=== PATIENT | female | born 1995 | race Caucasian/White ===

== ENCOUNTER 2017-03-11 10:46 | Emergency (ER) | payer OTHER ==
[~2017-03-11] VITALS: Ht 160 cm; Wt 56.0 kg
[2017-03-11 11:00] VITALS: TEMP 36.9; Ht 160 cm; Wt 56.0 kg
[2017-03-11] MEDS ORDERED: SODIUM CHLORIDE 0.9% 1000ML 1,000 ML IV STA (12:04)
[2017-03-11] MEDS ORDERED: ACETAMINOPHEN 500 MG TAB PO STA (12:04)
[2017-03-11 12:27] LABS: URINE APPEARANCE CLEAR (CLEAR); URINE BILIRUBIN NEG (NEG); URINE COLOR YELLOW; URINE EPITHELIAL CELL AUTO >30 /lpf (0-5); URINE NITRITE NEG (NEG); URINE PH 8.5 (4.5-7.5); URINE SPECIFIC GRAVITY 1.022 (1.000-1.030); UROBILINOGEN NEG (NEG); ZZUR CULT IF INDIC CLEAN CATCH NO
[2017-03-11 12:27] LABS: BASO % 0.2 %; BASO ABS # 0.01 K/uL (0-0.2); COMPLETE YES; EOS % 0.3 %; HEMATOCRIT 38.5 % (37-47); IG% 0.2 %; LYMPH % 16.8 %; MEAN CELL VOLUME 85.9 fL (80-100); MEAN CORPUSCULAR HEMOGLOBIN 30.4 pg (25-34); MEAN CORPUSCULAR HGB CONC 35.3 g/dl (32-36); MEAN PLATELET VOLUME 10.2 fL (7.4-10.4); MONO % 10.9 %; NEUT % 71.6 %; PLATELET COUNT 139 K/uL (130-400); RED BLOOD COUNT 4.48 M/uL (4.2-5.4); WHITE BLOOD COUNT 5.97 K/uL (4.8-10.8)
[2017-03-11 12:29] LABS: MANUAL MICROSCOPIC REQUIRED? NO; REVIEW REQ? NO
[2017-03-11 12:45] LABS: BUN/CREATININE RATIO 10.4 (10-20); CREATININE 0.7 mg/dl (0.60-1.20); POTASSIUM 3.6 mmol/L (3.5-5.1)
[2017-03-11 12:52] LABS: PREG INTERNAL NEGATIVE QC NEG CLEAR BACKGROUND; PREG INTERNAL POSITIVE QC POS CONTROL LINE
[2017-03-11 13:51] VITALS: BP 101/71; PULSE 80; O2SAT 100
--- NOTE | 2017-03-11 13:56 | EMERGENCY ROOM VISIT NOTE ---
History Report prepared by Pretty: Serenity Talbot Under the Supervision of: Dr. Deonte Navarrete M.D. 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 She states that she couldn't feel her fingertips. The patient then became dizzy and fell backwards but her coworker caught her so she did not hit her head or get injured from falling. The patient does not remember falling. The patient states that she has never experienced syncope in the past. She started feeling ill yesterday with a headache and sinus congestion. She suspects that she also had a fever because she was cold even though she was under 5 blankets. She is also experiencing a dry cough, chest tightness, and generalized body aches. The patient also experienced a sore throat yesterday morning, but has not had one since then. She has not taken any medication in an attempt to relieve her symptoms. The patient denies nausea, diarrhea, urinary symptoms including increased frequency or burning. The patient thinks that she is well hydrated. The patient did not eat breakfast this morning, but she states that is normal for her. She denies any chance of . The patient denies any recent sick contacts. Source of History: patient Onset: BUSINESS DIRECTOR Position: other (global) Quality: other (near-syncope) Timing: other (sudden) Associated Symptoms: + headache, + sorethroat, + cough (dry), + numbness ( prior to syncope), No nausea, No diarrhea, No urinary symptoms (including increased frequency or burning) Note: dizziness prior to syncope, sinus congestion, generalized body aches, chest tightness Review of Systems See HPI for pertinent positives & negatives. A total of 10 systems reviewed and were otherwise negative. Past Medical & Surgical Medical Problems: (1) History of bronchitis Family History Cancer Diabetes mellitus Heart disease Hypertension Social History Smoking Status: Never Smoker Housing Status: lives with family Occupation Status: employed Current/Historical Medications No Active Prescriptions or Reported Meds Allergies Coded Allergies: No Known Allergies (Unverified , 03/11/17) Physical Exam Vital Signs Date Time Temp Pulse Resp B/P (MAP) Pulse Ox O2 Delivery O2 Flow Rate FiO2 03/11/17 13:51 80 16 101/71 100 Room Air 03/11/17 12:36 79 125/83 03/11/17 12:33 75 109/65 97 108/72 102 120/64 03/11/17 12:09 88 03/11/17 11:00 36.9 99 18 113/66 99 Physical Exam GENERAL: Patient is in no acute distress. HEENT: No acute trauma, normocephalic atraumatic, mucous membranes moist, moderate nasal congestion, no throat erythema or exudate, no scleral icterus. NECK: No stridor, no adenopathy, no meningismus, trachea is midline. LUNGS: Clear to auscultation bilaterally, no wheeze, no rhonchi, breath sounds equal. HEART: Without murmurs gallops or rubs, regular rate and rhythm. ABDOMEN: Soft, nontender, bowel sounds positive, no hernias, no peritonitis. EXTREMITIES: No cyanosis or edema, full range of motion of all the joints without pain or difficulty, no signs for acute trauma. NEUROLOGIC: Oriented x 3, no acute motor or sensory deficits, no focal weakness. SKIN: No rash, no jaundice, no diaphoresis. Medical Decision & Procedures ER Provider Diagnostic Interpretation: Orthostatic Vital Signs: Evidence for dehydration with a significant increase in heart rate from 75 to 102 with standing. Laboratory Results 03/11/17 12:15 Red Blood Count 4.48, Mean Corpuscular Volume 85.9, Mean Corpuscular Hemoglobin 30.4, Mean Corpuscular Hemoglobin Concent 35.3, Mean Platelet Volume 10.2, Neutrophils (%) (Auto) 71.6, Lymphocytes (%) (Auto) 16.8, Monocytes (%) (Auto) 10.9, Eosinophils (%) (Auto) 0.3, Basophils (%) (Auto) 0.2, Neutrophils # (Auto ) 4.28, Lymphocytes # (Auto) 1.00, Monocytes # (Auto) 0.65, Eosinophils # (Auto ) 0.02, Basophils # (Auto) 0.01 03/11/17 12:15 Test 03/11/17 11:11 03/11/17 12:15 Urine Color YELLOW Urine Appearance CLEAR (CLEAR) Urine pH 8.5 (4.5-7.5) Urine Specific Tensed 1.022 (1.000-1.030) Urine Protein NEG (NEG) Urine Glucose (UA) NEG (NEG) Urine Ketones NEG (NEG) Urine Occult Blood NEG (NEG) Urine Nitrite NEG (NEG) Urine Bilirubin NEG (NEG) Urine Urobilinogen NEG (NEG) Urine Leukocyte Esterase TRACE (NEG) Urine WBC (Auto) 1-5 /hpf (0-5) Urine RBC (Auto) 0-4 /hpf (0-4) Urine Hyaline Casts (Auto) 1-5 /lpf (0-5) Urine Epithelial Cells (Auto) >30 /lpf (0-5) Urine Bacteria (Auto) NEG (NEG) White Blood Count 5.97 K/uL (4.8-10.8) Red Blood Count 4.48 M/uL (4.2-5.4) Hemoglobin 13.6 g/dL (12.0-16.0) Hematocrit 38.5 % (37-47) Mean Corpuscular Volume 85.9 fL (80-100) Mean Corpuscular Hemoglobin 30.4 pg (25-34) Mean Corpuscular Hemoglobin Concent 35.3 g/dl (32-36) Platelet Count 139 K/uL (130-400) Mean Platelet Volume 10.2 fL (7.4-10.4) Neutrophils (%) (Auto) 71.6 % Lymphocytes (%) (Auto) 16.8 % Monocytes (%) (Auto) 10.9 % Eosinophils (%) (Auto) 0.3 % Basophils (%) (Auto) 0.2 % Neutrophils # (Auto) 4.28 K/uL (1.4-6.5) Lymphocytes # (Auto) 1.00 K/uL (1.2-3.4) Monocytes # (Auto) 0.65 K/uL (0.11-0.59) Eosinophils # (Auto) 0.02 K/uL (0-0.5) Basophils # (Auto) 0.01 K/uL (0-0.2) RDW Standard Deviation 40.3 fL (36.4-46.3) RDW Coefficient of Variation 12.7 % (11.5-14.5) Immature Granulocyte % (Auto) 0.2 % Immature Granulocyte # (Auto) 0.01 K/uL (0.00-0.02) Anion Gap 6.0 mmol/L (3-11) Est Creatinine Clear Calc Drug Dose 106.0 ml/min Estimated GFR () 144.6 Estimated GFR (Non- 124.7 BUN/Creatinine Ratio 10.4 (10-20) Calcium Level 9.0 mg/dl (8.5-10.1) Total Bilirubin 0.4 mg/dl (0.2-1) Aspartate Amino Transf (AST/SGOT) 14 U/L (15-37) Alanine Aminotransferase (ALT/SGPT) 24 U/L (12-78) Alkaline Phosphatase 59 U/L (45-117) Total Protein 7.5 gm/dl (6.4-8.2) Albumin 3.7 gm/dl (3.4-5.0) Globulin 3.8 gm/dl (2.5-4.0) Albumin/Globulin Ratio 1.0 (0.9-2) Human Chorionic Gonadotropin, Qual NEG (NEG) Laboratory results reviewed by me. Medications Administered Medications (Trade) Dose Ordered Sig/Dandy Route Start Time Stop Time Status Last Admin Dose Admin Sodium Chloride 1,000 ml @ 999 mls/hr Q1H1M STAT IV 03/11/17 12:04 03/11/17 13:04 DC 03/11/17 12:37 999 MLS/HR Acetaminophen (Tylenol Tab) 1,000 mg NOW STAT PO 03/11/17 12:04 03/11/17 12:06 DC 03/11/17 12:36 1,000 MG ECG Indication: syncope (near-syncope) Rate (beats per minute): 79 Rhythm: normal sinus (with SA) Findings: no ectopy, other (no dysrhythmia) ED Course 1159: The patient was evaluated in room C5. A complete history and physical exam was performed. 1204: Ordered Tylenol Tab 1000 mg PO, Sodium Chloride 1000 ml @ 999 mls/hr IV 1300: Reevaluated the patient. She is feeling better. Discussed results and discharge instructions: she verbalized understanding and agreement. The patient is ready for discharge. Medical Decision Differential diagnoses considered include dehydration, dysrhythmia, anemia, viral illness, pneumonia, UTI, . Medication Reconciliation: I attest that I have personally reviewed the patient' s current medication list. Blood Pressure Screening: Patient was found to have normal blood pressure on screening and does not require follow-up. There is no leukocytosis or concerning anemia. No significant electrolyte abnormality, kidney failure or hepatitis. testing was negative. Orthostatic vital signs do suggest dehydration. EKG shows a sinus rhythm, no acute ischemia. Urinalysis does not show infection. The patient received IV saline, she feels improved. She is doing well. I do think she can be discharged home. The patient has an upper respiratory infection. She was in a hot environment and was dehydrated. These factors led to the near-syncope. She is improved since treatment in the emergency room and is being discharged home. Impression Primary Impression: Near syncope Additional Impressions: URI (upper respiratory infection) Dehydration Scribe Attestation The scribe's documentation has been prepared under my direction and personally reviewed by me in its entirety. I confirm that the note above accurately reflects all work, treatment, procedures, and medical decision making performed by me. Departure Information Dispostion Home / Self-Care Prescriptions No Active Prescriptions or Reported Meds Referrals Perfecto Jauregui M.D. (PCP) Forms HOME CARE DOCUMENTATION FORM, IMPORTANT VISIT INFORMATION, WORK / SCHOOL INSTRUCTIONS Patient Instructions My [facility] Phone2Action Additional Instructions stay well hydrated motrin and or tylenol for aches and fever rest return if worsening lab testing today was ok you were dehydrated today Problem Qualifiers Additional Impressions: URI (upper respiratory infection) URI type: unspecified URI Qualified Codes: J06.9 - Acute upper respiratory infection, unspecified
== END 2017-03-11 13:58 | disposition home or self-care (01) ==
LOC: C.EDB 10:49 → C.EDC 13:58
DX: R55 Syncope and collapse (principal); J06.9 Acute upper respiratory infection, unspecified; E86.0 Dehydration; Z83.3 Family history of diabetes mellitus; Z82.49 Family history of ischemic heart disease and other diseases of the circulatory system

== ENCOUNTER → 2017-11-23 | Outpatient (CLI) | payer OTHER | END | disposition home or self-care (01) | LOC: C.LABSPEC 14:08 | PROVIDERS: ATTEND Obstetrics & Gynecology | DX: Z11.3 Encounter for screening for infections with a predominantly sexual mode of transmission (principal) ==